=== PATIENT | male | born 1995 | race Caucasian/White ===

== ENCOUNTER 2017-12-28 17:14 | Emergency (ER) | payer SELFPAY ==
[~2017-12-28] VITALS: Ht 182.9 cm; Wt 110.7 kg
[2017-12-28 17:33] VITALS: BP 136/89
--- NOTE | 2017-12-28 17:47 | NUR ---
PT AMBULARTES TO BED 1, REPORT GIVEN TO LISA HUSAIN
--- NOTE | 2017-12-28 17:50 | NUR ---
PATIENT PRESENTS TO ED WITH C/O ABD PAIN . PT STATES HE HAD ABDOMINAL SURGERY DONE AT [facility] ON 12/19. PER PATIENT, HE WAS IN RETIREMENT AND HE SWALLOWED SOMETHING THAT CAUSED HIS INTESTINES TO RUPTURE. ABD INCISION WITH KAYLIE NOTED WITH DRAINAGE TO THE UMBILICUS. DENIES N/V/D; SKIN IS PINK/WARM/DRY; AAOX4 WITH EVEN AND STEADY GAIT; LUNGS CLEAR BL; HR EVEN AND REGULAR; PT DENIES ANY FEVER, CP, SOB, OR COUGH AT THIS TIME; PATIENT STATES PAIN OF 10/10 AT THIS TIME; VSS; PATIENT POSITIONED FOR COMFORT; HOB ELEVATED; BEDRAILS UP X2; BED DOWN. ER MD MADE AWARE OF PT STATUS.
[2017-12-28 18:55] VITALS: BP 120/63
--- NOTE | 2017-12-28 18:56 | NUR ---
Patient discharged with v/s stable. Written and verbal after care instructions given and explained. Patient alert, oriented and verbalized understanding of instructions. Ambulatory with to car. All questions addressed prior to discharge. ID band removed. Patient advised to follow up with PMD. Rx of IBUPROFEN AND BACTRIM given. Patient educated on indication of medication including possible reaction and side effects. Opportunity to ask questions provided and answered.
== END 2017-12-28 18:56 | disposition home or self-care (01) ==
LOC: MED 17:14
DX: T81.4XXA Infection following a procedure, initial encounter (principal); Z98.890 Other specified postprocedural states; X58.XXXA Exposure to other specified factors, initial encounter
CPT/HCPCS: 99283